=== PATIENT | female | born 1950 | race Caucasian/White ===

== ENCOUNTER 2016-11-03 00:52 | Emergency (ER) | payer MEDICARE, BC ==
[2016-11-03 01:13] VITALS: BP 135/82
[2016-11-03] MEDS ORDERED: Meclizine 25 MG Tab PO ONE (01:36)
--- NOTE | 2016-11-03 01:41 | EDM.PDOC ---
ED HPI GENERAL MEDICAL PROBLEM - General Chief Complaint: General Stated Complaint: DIZZINESS Time Seen by Provider: 11/03/16 01:27 Source of Information: Reports: Patient History Limitations: Reports: No Limitations - History of Present Illness INITIAL COMMENTS - FREE TEXT/NARRATIVE: History of present illness: [65-year-old female presenting with vertiginous dizziness came on tonight when she laid down. She noted then when she sat up in bed she also was dizzy. She's had a little nausea with this but no vomiting. She recalls having this once before in her life. She has no headache or visual disturbances she denies any focal neurologic deficits or weakness. A friend brought her in. She denies any ear pain or hearing loss but states she has some trouble with tinnitus at times. ] Review of systems: As per history of present illness and below otherwise all systems reviewed and negative. Past medical history: As per history of present illness and as reviewed below otherwise noncontributory. Surgical history: As per history of present illness and as reviewed below otherwise noncontributory. Social history: No reported history of drug or alcohol abuse. Family history: As per history of present illness and as reviewed below otherwise noncontributory. Physical exam: HEENT: Atraumatic, normocephalic, pupils reactive, negative for conjunctival pallor or scleral icterus, mucous membranes moist, throat clear, neck supple, nontender, trachea midline. TMs are clear, she displays no vertical or horizontal nystagmus but does complaint of vertiginous symptoms when we move her head from side to side. Lungs: Clear to auscultation, breath sounds equal bilaterally, chest nontender. Heart: S1S2, regular, negative for clicks, rubs, or JVD. Abdomen: Soft, nondistended, nontender. Negative for masses or hepatosplenomegaly. Negative for costovertebral tenderness. Pelvis: Stable nontender. Genitourinary: Deferred. Rectal: Deferred. Extremities: Atraumatic, negative for cords or calf pain. Neurovascular unremarkable. Neuro: Awake, alert, oriented. Cranial nerves II through XII unremarkable. Cerebellum unremarkable. Motor and sensory unremarkable throughout. Exam nonfocal. Diagnostics: [] Therapeutics: [] Impression: [Benign positional vertigo] Plan: [I gave her a dose of Antivert 25 mg and then a prescription for 20 more 1 by mouth every 6 hours she can follow-up with her primary care doctor if not improving the next few days] Definitive disposition and diagnosis as appropriate pending reevaluation and review of above. denies pain Pain Score (Numeric/FACES): 0 - Related Data Allergies Allergy/AdvReac Type Severity Reaction Status Date / Time No Known Allergies Allergy Verified 02/12/16 20:50 Home Meds: Home Meds Alendronate [Fosamax] 70 mg PO Q7D@0600 01/22/13 [History] Hydrochlorothiazide 12.5 mg PO DAILY 01/22/13 [History] Propranolol [Inderal] 40 mg PO TID 01/22/13 [History] ZOLMitriptan [Zomig] 5 mg PO ASDIRECTED PRN 01/22/13 [History] Calcium Carbonate/Vitamin D3 [Calcium 600 + Vit D Tablet] 1 each PO BID [History] Cyanocobalamin (Vitamin B-12) [Vitamin B-12] 1,000 mcg PO DAILY 05/11/13 [ History] Pedi Multivit #22/Vit D3/Vit K [Multivitamins Chewables Tablet] 1 tab PO DAILY 05/04/15 [History] Past Medical History HEENT History: Reports: Impaired Vision Cardiovascular History: Reports: Hypertension Gastrointestinal History: Reports: Other (See Below) STE[employer] History: Reports: Other (See Below) Other OB/BYN History: pain Musculoskeletal History: Reports: Osteoarthritis, Osteoporosis Neurological History: Reports: Headaches, Chronic Endocrine/Metabolic History: Reports: Obesity/BMI 30+ Hematologic History: Reports: B12 Deficiency, Blood Transfusion(s) Dermatologic History: Reports: Cellulitis, Other (See Below) Other Dermatologic History: ringworm - Infectious Disease History Infectious Disease History: Reports: Chicken Pox, Measles, Mumps - Past Surgical History GI Surgical History: Reports: Bariatric Procedure, Cholecystectomy, Colonoscopy Female Surgical History: Reports: Hysterectomy Musculoskeletal Surgical History: Reports: Hip Replacement, Knee Replacement Social & Family History - Tobacco Use Smoking Status *Q: Never Smoker Second Hand Smoke Exposure: No - Caffeine Use Caffeine Use: Reports: Coffee - Alcohol Use Days Per Week of Alcohol Use: 0 - Recreational Drug Use Recreational Drug Use: No - Living Situation & Occupation Living situation: Reports: Single Occupation: Retired ED ROS GENERAL - Review of Systems Review Of Systems: ROS reveals no pertinent complaints other than HPI. ED EXAM, GENERAL - Physical Exam Exam: See Below Course - Vital Signs Last Recorded V/S: Last Vital Signs Temp 35.8 C 11/03/16 01:12 Pulse 76 11/03/16 01:12 Resp 16 11/03/16 01:12 BP 135/82 11/03/16 01:12 Pulse Ox 95 11/03/16 01:12 - Orders/Labs/Meds Meds: Medications Discontinued Medications Generic Name Dose Route Start Last Admin Trade Name Aman PRN Reason Stop Dose Admin Meclizine HCl 25 mg 11/03/16 01:36 Antivert PO 11/03/16 01:37 ONETIME ONE Departure - Departure Time of Disposition: 01:40 Disposition: Home, Self-Care 01 Condition: Good Clinical Impression: Benign positional vertigo Qualifiers: Laterality: unspecified laterality Qualified Code(s): H81.10 - Benign paroxysmal vertigo, unspecified ear - Discharge Information Forms: ED Department Discharge Additional Instructions: Please follow-up with her doctor in the next 3-4 days if you're not improving. If he develop weakness of your face or arm or legs please return to the emergency room immediately.`
== END 2016-11-03 02:00 | disposition home or self-care (01) ==
LOC: JP.ED 00:52
DX: H81.10 Benign paroxysmal vertigo, unspecified ear (principal); I10 Essential (primary) hypertension; H54.7 Unspecified visual loss; M81.0 Age-related osteoporosis without current pathological fracture; E66.9 Obesity, unspecified; Z90.49 Acquired absence of other specified parts of digestive tract; Z90.710 Acquired absence of both cervix and uterus; Z96.649 Presence of unspecified artificial hip joint; Z96.659 Presence of unspecified artificial knee joint; Z79.899 Other long term (current) drug therapy
CPT/HCPCS: 99284; A9270; 99283

== ENCOUNTER 2018-02-03 06:21 | Day surgery (SDC) | payer MEDICARE, BC ==
[2018-02-03] MEDS ORDERED: Dextrose 5%-Lactated Ringers 1,000 ML IV SCH (07:15)
[2018-02-03] MEDS ORDERED: Midazolam 1 MG/ML 2 ML SDV ONE (08:01)
[2018-02-03] MEDS ORDERED: Propofol 200 MG/20 ML SDV ONE (08:01)
[2018-02-03] MEDS ORDERED: fentaNYL 100 MCG/2 ML SDV ONE (08:01)
[2018-02-03 10:10] VITALS: BP 107/71
--- NOTE | 2018-02-04 11:52 | OR ---
DATE OF PROCEDURE: 02/03/2018 PREOPERATIVE DIAGNOSIS: Indications for screening colonoscopy. POSTOPERATIVE DIAGNOSIS: Normal examination, other than multiple small hemangiomas in left colon. OPERATIVE PROCEDURE: Flexible colonoscopy. INDICATION FOR PROCEDURE: This is a 67-year-old referred for screening colonoscopy. The plan is to proceed with a colonoscopy with biopsies or polypectomy as indicated. Potential risks including bleeding and perforation were discussed, and the patient wishes to proceed. DETAILS OF PROCEDURE: The patient was taken to the operating room and after being placed in the left lateral decubitus position, IV sedation was administered. The initial digital rectal exam was performed and was unremarkable. Colonoscope was passed into the rectum with retroflexion revealing uncomplicated hemorrhoidal columns. The scope was then passed to the cecum. The prep was fairly good with there only being a small amount of liquid stool present. On the left side, the patient had multiple small hemangiomas in the sigmoid and descending colon, otherwise, the examination was normal. There were no areas of diverticulosis and, otherwise, no polyps or signs of neoplasia and no areas of colitis. The scope was then withdrawn, the above findings were reconfirmed, and the procedure concluded. Recommendation would be to repeat the colonoscopy in 10 years. Chip Rios MD /[id number]
== END 2018-02-03 10:10 | disposition home or self-care (01) ==
LOC: JP.SDS 06:21
PROVIDERS: ATTEND Surgery
DX: Z12.11 Encounter for screening for malignant neoplasm of colon (principal); D18.03 Hemangioma of intra-abdominal structures; I10 Essential (primary) hypertension; M17.10 Unilateral primary osteoarthritis, unspecified knee; E66.9 Obesity, unspecified; Z68.42 Body mass index [BMI] 45.0-49.9, adult; Z98.84 Bariatric surgery status; Z79.899 Other long term (current) drug therapy
CPT/HCPCS: G0121; J2250; J2704; J3010; J7042

== ENCOUNTER 2019-07-20 06:34 | Inpatient (IN) | payer MEDICARE, BC ==
[2019-07-20] MEDS ORDERED: Lactated Ringers 1,000 ML IV SCH (07:30)
[2019-07-20] MEDS ORDERED: ceFAZolin 2 GM in Premix Bag 1 BAG IV ONE (07:30)
[2019-07-20] MEDS: Nozin Nasal Sanitizer NASBOTH SCH ×2 (08:05→21:01)
[2019-07-20] MEDS ORDERED: Propofol 200 MG/20 ML SDV ONE ×2 (08:18→10:23)
[2019-07-20] MEDS ORDERED: fentaNYL 100 MCG/2 ML SDV ONE (08:18)
[2019-07-20] MEDS ORDERED: Midazolam 1 MG/ML 2 ML SDV ONE (08:18)
[2019-07-20] MEDS ORDERED: Povidone-Iodine 10% Soln 118.25 ML Bottle ONE (08:53)
[2019-07-20] MEDS ORDERED: Tranexamic Acid 960 MG in Sodium Chloride 0.9% 50 ML IV SCH (09:00)
[2019-07-20] MEDS ORDERED: Bupivacaine 0.25% 10 ML SDV ONE (09:22)
[2019-07-20] MEDS ORDERED: Lactated Ringers 1,000 ML ONE (10:25)
[2019-07-20] MEDS ORDERED: Acetaminophen 325 MG Tab PO PRN (11:48)
[2019-07-20] MEDS ORDERED: Morphine 2 MG/ML Syringe IVPUSH PRN (11:48)
[2019-07-20] MEDS ORDERED: Acetaminophen/HYDROcodone 325-5 MG Tab PO PRN (11:48)
[2019-07-20] MEDS ORDERED: SUMAtriptan 50 MG Tab PO PRN (11:55)
[2019-07-20] MEDS ORDERED: Tranexamic Acid 960 MG in Sodium Chloride 0.9% 50 ML IV PRN (12:00)
[2019-07-20] MEDS: Sodium Chloride 0.9% 1,000 ML IV SCH ×2 (12:52→20:58)
[2019-07-20] MEDS: Propranolol 40 MG Tab PO SCH ×2 (14:51→21:01)
[2019-07-20] MEDS: Acetaminophen/oxyCODONE 325-5 MG Tab PO PRN ×4 (15:19→23:51)
[2019-07-20] MEDS: ceFAZolin 1 GM in Premix Bag 1 BAG IV SCH ×2 (16:28→23:58)
[2019-07-20] MEDS: Ondansetron 4 MG/2 ML SDV IVPUSH PRN (18:33)
--- NOTE | 2019-07-20 20:17 | CRLCR ---
Indication: Postop left total knee. Technique: Two views of the left knee. Comparison: None Findings: Left knee replacement is identified. Air is identified within the soft tissues. There is no evidence of hardware failure. Impression: Postoperative changes of a left knee replacement Dictated by Karen Lan MD @ Jul 20 2019 8:14PM Signed by Dr. Karen Lan @ Jul 20 2019 8:15PM
[2019-07-20] MEDS: Docusate Sodium 100 MG Cap PO SCH (21:00)
[2019-07-21] MEDS: Acetaminophen/oxyCODONE 325-5 MG Tab PO PRN ×5 (04:45→22:27)
[2019-07-21] MEDS: Sodium Chloride 0.9% 1,000 ML IV SCH (05:27)
[2019-07-21] MEDS: ceFAZolin 1 GM in Premix Bag 1 BAG IV SCH (07:16)
[2019-07-21] MEDS: Magnesium Hydroxide 400 MG/5 ML Susp 30 ML Cup PO PRN (08:48)
[2019-07-21] MEDS: Propranolol 40 MG Tab PO SCH ×3 (08:50→22:27)
[2019-07-21] MEDS: Hydrochlorothiazide 12.5 MG Cap PO SCH (08:50)
[2019-07-21] MEDS: Docusate Sodium 100 MG Cap PO SCH ×2 (08:50→22:27)
[2019-07-21] MEDS: Enoxaparin 30 MG/0.3 ML Syringe SUBCUT SCH (08:50)
[2019-07-21] MEDS: Nozin Nasal Sanitizer NASBOTH SCH ×2 (08:50→22:28)
[2019-07-21] MEDS: Ondansetron 4 MG/2 ML SDV IVPUSH PRN (10:44)
[2019-07-22] MEDS: Acetaminophen/oxyCODONE 325-5 MG Tab PO PRN ×4 (03:04→18:34)
[2019-07-22] MEDS: Hydrochlorothiazide 12.5 MG Cap PO SCH (08:15)
[2019-07-22] MEDS: Nozin Nasal Sanitizer NASBOTH SCH ×2 (08:15→20:01)
[2019-07-22] MEDS: Docusate Sodium 100 MG Cap PO SCH ×2 (08:15→20:01)
[2019-07-22] MEDS: Enoxaparin 30 MG/0.3 ML Syringe SUBCUT SCH (08:16)
[2019-07-22] MEDS: Propranolol 40 MG Tab PO SCH ×3 (08:16→20:01)
[2019-07-22] MEDS: Magnesium Hydroxide 400 MG/5 ML Susp 30 ML Cup PO PRN ×2 (12:40→18:36)
--- NOTE | 2019-07-22 15:52 | PCM.SURGPN ---
- General Info Date of Service: 07/21/19 Date of Surgery/Procedure: 07/20/19 POD#: 1 Post-Op Diagnosis: Osteoarthritis left knee Functional Status: Reports: Pain Controlled, Tolerating Diet - Review of Systems General: Reports: No Symptoms HEENT: Reports: No Symptoms Pulmonary: Reports: No Symptoms Cardiovascular: Reports: No Symptoms Gastrointestinal: Reports: No Symptoms Genitourinary: Reports: No Symptoms Musculoskeletal: Reports: Leg Pain, Joint Swelling Skin: Reports: No Symptoms Neurological: Reports: No Symptoms Psychiatric: Reports: No Symptoms - Patient Data Vitals - Most Recent: Last Vital Signs Temp 37.6 C 07/22/19 14:55 Pulse 80 07/22/19 14:55 Resp 16 07/22/19 14:55 BP 118/43 L 07/22/19 14:55 Pulse Ox 93 L 07/22/19 14:55 Weight - Most Recent: 93.984 kg I&O - Last 24 Hours: Intake & Output 07/22/19 07/22/19 07/22/19 06:59 14:59 22:59 Intake Total 360 Output Total 900 700 100 Balance -900 -340 -100 Med Orders - Current: Current Medications Acetaminophen (Tylenol) 650 mg PO Q4H PRN PRN Reason: Pain/Fever Hydrocodone Bitart/Acetaminophen ([place] 325-5 Mg) 1 tab PO Q3H PRN PRN Reason: Pain (mild 1-3) Bandage/Support Products ( Nasal Marketing Project Coordinator) 1 applic NASBOTH BID [facility] Last Admin: 07/22/19 08:15 Dose: 1 applic Docusate Sodium (Colace) 100 mg PO BID [facility] Last Admin: 07/22/19 08:15 Dose: 100 mg Enoxaparin Sodium (Lovenox) 30 mg SUBCUT DAILY [facility] Last Admin: 07/22/19 08:16 Dose: 30 mg Hydrochlorothiazide (Hydrochlorothiazide) 12.5 mg PO DAILY [facility] Last Admin: 07/22/19 08:15 Dose: 12.5 mg Magnesium Hydroxide (Milk Of Magnesia) 30 ml PO BID PRN PRN Reason: Constipation Last Admin: 07/22/19 12:40 Dose: 30 ml Morphine Sulfate (Morphine) 2 mg IVPUSH Q1H PRN PRN Reason: Breakthrough Pain Last Admin: 07/20/19 13:56 Dose: 2 mg Ondansetron HCl (Zofran) 4 mg IVPUSH Q6H PRN PRN Reason: Nausea/Vomiting Last Admin: 07/21/19 10:44 Dose: 4 mg Oxycodone/Acetaminophen (Percocet 325-5 Mg) 1 - 2 tab PO Q4H PRN PRN Reason: Pain (moderate 4-6) Last Admin: 07/22/19 12:40 Dose: 2 tab Propranolol HCl (Inderal) 40 mg PO TID [facility] Last Admin: 07/22/19 14:56 Dose: 40 mg Sumatriptan Succinate (Imitrex) 50 mg PO ASDIRECTED PRN PRN Reason: Migraine Discontinued Medications Bupivacaine HCl (Sensorcaine-Mpf 0.25%) Confirm Administered Dose 10 ml .ROUTE .STK-MED ONE Stop: 07/20/19 09:23 Fentanyl (Sublimaze) Confirm Administered Dose 100 mcg .ROUTE .STK-MED ONE Stop: 07/20/19 08:19 Cefazolin Sodium/Dextrose 2 gm (/ Premix) 50 mls @ 100 mls/hr IV ONETIME ONE Stop: 07/20/19 07:59 Last Admin: 07/20/19 09:25 Dose: 100 mls/hr Lactated Ringer's (Ringers, Lactated) 1,000 mls @ 75 mls/hr IV ASDIRECTED [facility] Last Admin: 07/20/19 08:06 Dose: 75 mls/hr Tranexamic Acid 960 mg/ Sodium (Chloride) 59.6 mls @ 238.4 mls/hr IV Q3H [facility] Stop: 07/20/19 09:14 Last Admin: 07/20/19 09:50 Dose: 238.4 mls/hr Tranexamic Acid 960 mg/ Sodium (Chloride) 59.6 mls @ 238.4 mls/hr IV ONETIME PRN PRN Reason: IF REORDERED BY SURGEON Stop: 07/20/19 12:01 Lactated Ringer's (Ringers, Lactated) Confirm Administered Dose 1,000 mls @ as directed .ROUTE .STK-MED ONE Stop: 07/20/19 10:26 Cefazolin Sodium/Dextrose 1 gm (/ Premix) 50 mls @ 100 mls/hr IV Q8H [facility] Stop: 07/21/19 08:29 Last Admin: 07/21/19 07:16 Dose: 100 mls/hr Sodium Chloride (Normal Saline) 1,000 mls @ 125 mls/hr IV ASDIRECTED [facility] Last Admin: 07/21/19 05:27 Dose: 125 mls/hr Midazolam HCl (Versed 1 Mg/Ml) Confirm Administered Dose 2 mg .ROUTE .STK-MED ONE Stop: 07/20/19 08:19 Povidone Iodine (Betadine 10% Soln) Confirm Administered Dose 1 ml .ROUTE .STK- MED ONE Stop: 07/20/19 08:54 Last Admin: 07/20/19 11:25 Dose: 1 ml Propofol (Diprivan 20 Ml) Confirm Administered Dose 200 mg .ROUTE .STK-MED ONE Stop: 07/20/19 08:19 Propofol (Diprivan 20 Ml) Confirm Administered Dose 200 mg .ROUTE .STK-MED ONE Stop: 07/20/19 10:24 - Exam Wound/Incisions: Dressing Dry and Intact General: Alert, Oriented HEENT: Pupils Equal Neck: Supple Cardiovascular: Regular Rate, Regular Rhythm GI/Abdominal Exam: Normal Bowel Sounds, Soft, No Organomegaly Extremities: Leg Pain, Limited Range of Motion Skin: Warm, Dry Neurological: No New Focal Deficit Psy/Mental Status: Alert, Normal Affect, Normal Mood Sepsis Event Note - Evaluation Sepsis Screening Result: No Definite Risk - Focused Exam Vital Signs: Vital Signs Temp Pulse Resp BP BP Pulse Ox 07/22/19 14:55 37.6 C 80 16 118/43 L 93 L 07/22/19 10:08 37.8 C 79 16 109/53 L 92 L 07/22/19 07:03 37.2 C 83 16 128/58 L 93 L Date Exam was Performed: 07/22/19 Time Exam was Performed: 15:49 - Problem List & Annotations (1) Status post total left knee replacement SNOMED Code(s): 9981530747267, 1620123268681 Code(s): Z96.652 - PRESENCE OF LEFT ARTIFICIAL KNEE JOINT Status: Acute Current Visit: Yes (2) Osteoarthritis, knee SNOMED Code(s): 367352431 Code(s): M17.10 - UNILATERAL PRIMARY OSTEOARTHRITIS, UNSPECIFIED KNEE Status: Acute Current Visit: No Qualifiers: Osteoarthritis type: primary Laterality: left Qualified Code(s): M17.12 - Unilateral primary osteoarthritis, left knee - Problem List Review Problem List Initiated/Reviewed/Updated: Yes - My Orders Last 24 Hours: Medication Orders Acetaminophen (Tylenol) 650 mg PO Q4H PRN PRN Reason: Pain/Fever Hydrocodone Bitart/Acetaminophen ([place] 325-5 Mg) 1 tab PO Q3H PRN PRN Reason: Pain (mild 1-3) Bandage/Support Products ( Nasal Marketing Project Coordinator) 1 applic NASBOTH BID [facility] Last Admin: 07/22/19 08:15 Dose: 1 applic Admin: 07/21/19 22:28 Dose: 1 applic Admin: 07/21/19 08:50 Dose: 1 applic Admin: 07/20/19 21:01 Dose: 1 applic Admin: 07/20/19 08:05 Dose: 1 applic Docusate Sodium (Colace) 100 mg PO BID [facility] Last Admin: 07/22/19 08:15 Dose: 100 mg Admin: 07/21/19 22:27 Dose: 100 mg Admin: 07/21/19 08:50 Dose: 100 mg Admin: 07/20/19 21:00 Dose: 100 mg Enoxaparin Sodium (Lovenox) 30 mg SUBCUT DAILY [facility] Last Admin: 07/22/19 08:16 Dose: 30 mg Admin: 07/21/19 08:50 Dose: 30 mg Hydrochlorothiazide (Hydrochlorothiazide) 12.5 mg PO DAILY [facility] Last Admin: 07/22/19 08:15 Dose: 12.5 mg Admin: 07/21/19 08:50 Dose: 12.5 mg Magnesium Hydroxide (Milk Of Magnesia) 30 ml PO BID PRN PRN Reason: Constipation Last Admin: 07/22/19 12:40 Dose: 30 ml Admin: 07/21/19 08:48 Dose: 30 ml Morphine Sulfate (Morphine) 2 mg IVPUSH Q1H PRN PRN Reason: Breakthrough Pain Last Admin: 07/20/19 13:56 Dose: 2 mg Ondansetron HCl (Zofran) 4 mg IVPUSH Q6H PRN PRN Reason: Nausea/Vomiting Last Admin: 07/21/19 10:44 Dose: 4 mg Admin: 07/20/19 18:33 Dose: 4 mg Oxycodone/Acetaminophen (Percocet 325-5 Mg) 1 - 2 tab PO Q4H PRN PRN Reason: Pain (moderate 4-6) Last Admin: 07/22/19 12:40 Dose: 2 tab Admin: 07/22/19 08:14 Dose: 2 tab Admin: 07/22/19 03:04 Dose: 1 tab Admin: 07/21/19 22:27 Dose: 2 tab Admin: 07/21/19 18:14 Dose: 2 tab Admin: 07/21/19 13:22 Dose: 2 tab Admin: 07/21/19 08:49 Dose: 2 tab Admin: 07/21/19 04:45 Dose: 2 tab Admin: 07/20/19 23:51 Dose: 2 tab Admin: 07/20/19 19:36 Dose: 1 tab Admin: 07/20/19 19:26 Dose: 1 tab Admin: 07/20/19 15:19 Dose: 1 tab Propranolol HCl (Inderal) 40 mg PO TID [facility] Last Admin: 07/22/19 14:56 Dose: 40 mg Admin: 07/22/19 08:16 Dose: 40 mg Admin: 07/21/19 22:27 Dose: 40 mg Admin: 07/21/19 13:22 Dose: 40 mg Admin: 07/21/19 08:50 Dose: 40 mg Admin: 07/20/19 21:01 Dose: 40 mg Admin: 07/20/19 14:51 Dose: 40 mg Sumatriptan Succinate (Imitrex) 50 mg PO ASDIRECTED PRN PRN Reason: Migraine - Assessment Assessment (Free Text/Narrative):: Did well over night, no nausea, up in chair for a little bit, not much walking - Plan Plan (Free Text/Narrative):: Continue PT, D/C Cárdenas, tolerating po so will saline lock IV
--- NOTE | 2019-07-22 15:55 | PCM.SURGPN ---
- General Info Date of Service: 07/22/19 Date of Surgery/Procedure: 07/20/19 POD#: 2 Post-Op Diagnosis: Osteoarthritis left knee Functional Status: Reports: Pain Controlled, Tolerating Diet, Ambulating, Urinating - Review of Systems General: Reports: No Symptoms HEENT: Reports: No Symptoms Pulmonary: Reports: No Symptoms Cardiovascular: Reports: No Symptoms Gastrointestinal: Reports: No Symptoms Genitourinary: Reports: No Symptoms Musculoskeletal: Reports: Joint Pain, Joint Swelling Skin: Reports: No Symptoms Neurological: Reports: No Symptoms Psychiatric: Reports: No Symptoms - Patient Data Vitals - Most Recent: Last Vital Signs Temp 37.6 C 07/22/19 14:55 Pulse 80 07/22/19 14:55 Resp 16 07/22/19 14:55 BP 118/43 L 07/22/19 14:55 Pulse Ox 93 L 07/22/19 14:55 Weight - Most Recent: 93.984 kg I&O - Last 24 Hours: Intake & Output 07/22/19 07/22/19 07/22/19 06:59 14:59 22:59 Intake Total 360 Output Total 900 700 100 Balance -900 -340 -100 Med Orders - Current: Current Medications Acetaminophen (Tylenol) 650 mg PO Q4H PRN PRN Reason: Pain/Fever Hydrocodone Bitart/Acetaminophen ([place] 325-5 Mg) 1 tab PO Q3H PRN PRN Reason: Pain (mild 1-3) Bandage/Support Products ( Nasal Portfolio Specialist) 1 applic NASBOTH BID [facility] Last Admin: 07/22/19 08:15 Dose: 1 applic Docusate Sodium (Colace) 100 mg PO BID [facility] Last Admin: 07/22/19 08:15 Dose: 100 mg Enoxaparin Sodium (Lovenox) 30 mg SUBCUT DAILY [facility] Last Admin: 07/22/19 08:16 Dose: 30 mg Hydrochlorothiazide (Hydrochlorothiazide) 12.5 mg PO DAILY [facility] Last Admin: 07/22/19 08:15 Dose: 12.5 mg Magnesium Hydroxide (Milk Of Magnesia) 30 ml PO BID PRN PRN Reason: Constipation Last Admin: 07/22/19 12:40 Dose: 30 ml Morphine Sulfate (Morphine) 2 mg IVPUSH Q1H PRN PRN Reason: Breakthrough Pain Last Admin: 07/20/19 13:56 Dose: 2 mg Ondansetron HCl (Zofran) 4 mg IVPUSH Q6H PRN PRN Reason: Nausea/Vomiting Last Admin: 07/21/19 10:44 Dose: 4 mg Oxycodone/Acetaminophen (Percocet 325-5 Mg) 1 - 2 tab PO Q4H PRN PRN Reason: Pain (moderate 4-6) Last Admin: 07/22/19 12:40 Dose: 2 tab Propranolol HCl (Inderal) 40 mg PO TID [facility] Last Admin: 07/22/19 14:56 Dose: 40 mg Sumatriptan Succinate (Imitrex) 50 mg PO ASDIRECTED PRN PRN Reason: Migraine Discontinued Medications Bupivacaine HCl (Sensorcaine-Mpf 0.25%) Confirm Administered Dose 10 ml .ROUTE .STK-MED ONE Stop: 07/20/19 09:23 Fentanyl (Sublimaze) Confirm Administered Dose 100 mcg .ROUTE .STK-MED ONE Stop: 07/20/19 08:19 Cefazolin Sodium/Dextrose 2 gm (/ Premix) 50 mls @ 100 mls/hr IV ONETIME ONE Stop: 07/20/19 07:59 Last Admin: 07/20/19 09:25 Dose: 100 mls/hr Lactated Ringer's (Ringers, Lactated) 1,000 mls @ 75 mls/hr IV ASDIRECTED [facility] Last Admin: 07/20/19 08:06 Dose: 75 mls/hr Tranexamic Acid 960 mg/ Sodium (Chloride) 59.6 mls @ 238.4 mls/hr IV Q3H [facility] Stop: 07/20/19 09:14 Last Admin: 07/20/19 09:50 Dose: 238.4 mls/hr Tranexamic Acid 960 mg/ Sodium (Chloride) 59.6 mls @ 238.4 mls/hr IV ONETIME PRN PRN Reason: IF REORDERED BY SURGEON Stop: 07/20/19 12:01 Lactated Ringer's (Ringers, Lactated) Confirm Administered Dose 1,000 mls @ as directed .ROUTE .STK-MED ONE Stop: 07/20/19 10:26 Cefazolin Sodium/Dextrose 1 gm (/ Premix) 50 mls @ 100 mls/hr IV Q8H [facility] Stop: 03/03/20 08:29 Last Admin: 07/21/19 07:16 Dose: 100 mls/hr Sodium Chloride (Normal Saline) 1,000 mls @ 125 mls/hr IV ASDIRECTED [facility] Last Admin: 07/21/19 05:27 Dose: 125 mls/hr Midazolam HCl (Versed 1 Mg/Ml) Confirm Administered Dose 2 mg .ROUTE .STK-MED ONE Stop: 07/20/19 08:19 Povidone Iodine (Betadine 10% Soln) Confirm Administered Dose 1 ml .ROUTE .STK- MED ONE Stop: 07/20/19 08:54 Last Admin: 07/20/19 11:25 Dose: 1 ml Propofol (Diprivan 20 Ml) Confirm Administered Dose 200 mg .ROUTE .STK-MED ONE Stop: 07/20/19 08:19 Propofol (Diprivan 20 Ml) Confirm Administered Dose 200 mg .ROUTE .STK-MED ONE Stop: 07/20/19 10:24 - Exam Wound/Incisions: Healing Well, Dressing Dry and Intact, No Drainage General: Alert, Oriented HEENT: Pupils Equal Neck: Supple Lungs: Clear to Auscultation, Normal Respiratory Effort GI/Abdominal Exam: Normal Bowel Sounds, Soft, Non-Tender, No Distention Extremities: Leg Pain, Limited Range of Motion Skin: Warm, Dry Neurological: No New Focal Deficit Psy/Mental Status: Alert, Normal Affect, Normal Mood Sepsis Event Note - Evaluation Sepsis Screening Result: No Definite Risk - Focused Exam Vital Signs: Vital Signs Temp Pulse Resp BP BP Pulse Ox 07/22/19 14:55 37.6 C 80 16 118/43 L 93 L 07/22/19 10:08 37.8 C 79 16 109/53 L 92 L 07/22/19 07:03 37.2 C 83 16 128/58 L 93 L Date Exam was Performed: 07/22/19 Time Exam was Performed: 15:52 - Problem List & Annotations (1) Status post total left knee replacement SNOMED Code(s): 2137379104994, 7190141607410 Code(s): Z96.652 - PRESENCE OF LEFT ARTIFICIAL KNEE JOINT Status: Acute Current Visit: Yes (2) Osteoarthritis, knee SNOMED Code(s): 775242228 Code(s): M17.10 - UNILATERAL PRIMARY OSTEOARTHRITIS, UNSPECIFIED KNEE Status: Acute Current Visit: No Qualifiers: Osteoarthritis type: primary Laterality: left Qualified Code(s): M17.12 - Unilateral primary osteoarthritis, left knee - Problem List Review Problem List Initiated/Reviewed/Updated: Yes - My Orders Last 24 Hours: Medication Orders Acetaminophen (Tylenol) 650 mg PO Q4H PRN PRN Reason: Pain/Fever Hydrocodone Bitart/Acetaminophen ([place] 325-5 Mg) 1 tab PO Q3H PRN PRN Reason: Pain (mild 1-3) Bandage/Support Products ( Nasal Portfolio Specialist) 1 applic NASBOTH BID [facility] Last Admin: 07/22/19 08:15 Dose: 1 applic Admin: 07/21/19 22:28 Dose: 1 applic Admin: 07/21/19 08:50 Dose: 1 applic Admin: 07/20/19 21:01 Dose: 1 applic Admin: 07/20/19 08:05 Dose: 1 applic Docusate Sodium (Colace) 100 mg PO BID [facility] Last Admin: 07/22/19 08:15 Dose: 100 mg Admin: 07/21/19 22:27 Dose: 100 mg Admin: 07/21/19 08:50 Dose: 100 mg Admin: 07/20/19 21:00 Dose: 100 mg Enoxaparin Sodium (Lovenox) 30 mg SUBCUT DAILY [facility] Last Admin: 07/22/19 08:16 Dose: 30 mg Admin: 07/21/19 08:50 Dose: 30 mg Hydrochlorothiazide (Hydrochlorothiazide) 12.5 mg PO DAILY [facility] Last Admin: 07/22/19 08:15 Dose: 12.5 mg Admin: 07/21/19 08:50 Dose: 12.5 mg Magnesium Hydroxide (Milk Of Magnesia) 30 ml PO BID PRN PRN Reason: Constipation Last Admin: 07/22/19 12:40 Dose: 30 ml Admin: 07/21/19 08:48 Dose: 30 ml Morphine Sulfate (Morphine) 2 mg IVPUSH Q1H PRN PRN Reason: Breakthrough Pain Last Admin: 07/20/19 13:56 Dose: 2 mg Ondansetron HCl (Zofran) 4 mg IVPUSH Q6H PRN PRN Reason: Nausea/Vomiting Last Admin: 07/21/19 10:44 Dose: 4 mg Admin: 07/20/19 18:33 Dose: 4 mg Oxycodone/Acetaminophen (Percocet 325-5 Mg) 1 - 2 tab PO Q4H PRN PRN Reason: Pain (moderate 4-6) Last Admin: 07/22/19 12:40 Dose: 2 tab Admin: 07/22/19 08:14 Dose: 2 tab Admin: 07/22/19 03:04 Dose: 1 tab Admin: 07/21/19 22:27 Dose: 2 tab Admin: 07/21/19 18:14 Dose: 2 tab Admin: 07/21/19 13:22 Dose: 2 tab Admin: 07/21/19 08:49 Dose: 2 tab Admin: 07/21/19 04:45 Dose: 2 tab Admin: 07/20/19 23:51 Dose: 2 tab Admin: 07/20/19 19:36 Dose: 1 tab Admin: 07/20/19 19:26 Dose: 1 tab Admin: 07/20/19 15:19 Dose: 1 tab Propranolol HCl (Inderal) 40 mg PO TID [facility] Last Admin: 07/22/19 14:56 Dose: 40 mg Admin: 07/22/19 08:16 Dose: 40 mg Admin: 07/21/19 22:27 Dose: 40 mg Admin: 07/21/19 13:22 Dose: 40 mg Admin: 07/21/19 08:50 Dose: 40 mg Admin: 07/20/19 21:01 Dose: 40 mg Admin: 07/20/19 14:51 Dose: 40 mg Sumatriptan Succinate (Imitrex) 50 mg PO ASDIRECTED PRN PRN Reason: Migraine - Assessment Assessment (Free Text/Narrative):: Doing a little better with mobility today, has been able to get into hallway, dressing removed, incision looks good - Plan Plan (Free Text/Narrative):: Continue PT/OT, she lives alone so arrangements being made for SNF
--- NOTE | 2019-07-22 20:26 | OR ---
DATE OF PROCEDURE: 07/20/2019 SURGEON: Diogo Plascencia MD PREOPERATIVE DIAGNOSIS: End-stage osteoarthritis, left knee. POSTOPERATIVE DIAGNOSIS: End-stage osteoarthritis, left knee. PROCEDURE: Left total knee arthroplasty utilizing [employer] components. ANESTHESIA: Spinal with sedation. INDICATIONS: Angelique is a 68-year-old female with a history of progressive pain and disability in her left knee for the past several years. She has a history of right total knee arthroplasty done in 2012. She has done well with that, but has become progressively more limited with her left knee. X-rays show end-stage osteoarthritis with complete collapse medially, osteophyte formation and flattening of weightbearing surfaces. Range of motion is limited from 0 to 90 degrees. She now presents for her left total knee arthroplasty. Risks, benefits, potential complications of the procedure were discussed, she agrees to proceed. DESCRIPTION OF PROCEDURE: After adequate anesthesia was obtained, the patient was placed supine with a tourniquet about the left upper thigh. Left leg was prepped and draped in a sterile fashion. Leg was exsanguinated and tourniquet inflated to 300 mmHg pressure. Longitudinal incision was made over the anterior aspect of the knee and carried down through the subcutaneous tissues. Medial parapatellar arthrotomy was performed. The patella was partially everted and the posterior aspect was resected with an oscillating saw. Significant medial osteophyte present around the tibial plateau. A medial release was performed and rongeur used to remove the osteophyte. The knee was flexed, and as the knee was flexed, a large intra-articular loose body presented itself and was removed. Intramedullary canal was drilled and intramedullary guide was placed. Distal cutting jig was secured and the distal femoral cuts were then made. Extramedullary tibial jig was then placed, aligned and secured. Proximal tibia was resected. Knee was flexed and the femur was sized. A #6 cutting jig was secured and remaining femoral cuts were made. Femoral trial was then placed and intramedullary notch cut was made for a posterior cruciate sacrificing component and holes were drilled for the prosthetic pegs. It became apparent that the flexion-extension gap was still inadequate, and an additional 4 mm was resected from the tibia. Medial release was also extended more posteriorly. Tibia was sized and size 10 trial was placed and the knee was taken through range of motion. Full extension was able to be obtained and the flexion-extension gaps appeared to be equal. Tibial tray was secured. The trial articular surface and femur were removed and tibial preparation completed with the drill and punch. The tray was removed. The knee was then thoroughly irrigated with pulse lavage. The bone surfaces were dried and components were cemented in place. Excess cement was removed. Knee was held in full extension with a 10 mm insert as cement cured. This showed tightness medially and slight laxity laterally. An 11 blade was then used to perform a fractional release of the medial collateral ligament in pie crust fashion. A 12 mm insert was then trialed, which provided good balance in flexion and extension. Trial was removed, knee was irrigated, and the final polyethylene was snapped into position. Patella tracked very well with no lateral release. Knee was irrigated with a dilute Betadine solution which was left in place for 2.5 minutes followed by final irrigation and then closure with #2 Ethibond in interrupted fashion. Knee was ranged after closure in full extension and now flexion to 125 degrees was obtained without difficulty. Knee was then closed the remainder of the way with 2-0 Vicryl and 3-0 Monocryl and Steri- Strips were applied. Light compressive dressing was then placed. The patient tolerated the procedure very well. There were no complications. Taken from the operating room in stable condition. Diogo Plascencia MD /[id number] KIM
[2019-07-23] MEDS: Acetaminophen/oxyCODONE 325-5 MG Tab PO PRN ×3 (00:55→13:01)
[2019-07-23] MEDS: Nozin Nasal Sanitizer NASBOTH SCH (08:15)
[2019-07-23] MEDS: Enoxaparin 30 MG/0.3 ML Syringe SUBCUT SCH (08:17)
[2019-07-23] MEDS: Propranolol 40 MG Tab PO SCH (08:17)
[2019-07-23] MEDS: Docusate Sodium 100 MG Cap PO SCH (08:17)
[2019-07-23] MEDS: Hydrochlorothiazide 12.5 MG Cap PO SCH (08:17)
[2019-07-23 10:12] VITALS: BP 110/66; PULSE 73
--- NOTE | 2019-07-23 15:04 | PCM.DCSUM1 ---
Discharge Summary - Hospital Course HPI Initial Comments: 68 year old female with severe left knee OA limiting her walking and ADLS. Admitted for left TKA. Diagnosis: Stroke: No Modified Bonneville Scale: No Symptoms at All Modified Bonneville Scale Score: 0 - Discharge Data Discharge Date: 07/23/19 Discharge Disposition: DC/Tfer to SNF 03 Condition: Good - Referral to Home Health Date of Face to Face Encounter: 07/23/19 Primary Care Physician: Angel Joseph MD - Discharge Diagnosis/Problem(s) (1) Status post total left knee replacement SNOMED Code(s): 7818209194251, 1812475095154 ICD Code: Z96.652 - PRESENCE OF LEFT ARTIFICIAL KNEE JOINT Status: Acute (2) Osteoarthritis, knee SNOMED Code(s): 049472870 ICD Code: M17.10 - UNILATERAL PRIMARY OSTEOARTHRITIS, UNSPECIFIED KNEE Status: Acute Qualifiers: Osteoarthritis type: primary Laterality: left Qualified Code(s): M17.12 - Unilateral primary osteoarthritis, left knee - Patient Summary/Data Operative Procedure(s) Performed: Left Total Knee Arthroplasty Consults: Consultations 07/20/19 11:48 Consult to Case Management/Aging Room Operator [CONS] Routine Comment: Physician Instructions: Service(s) to be Consulted: Case Management Reason for Consult: Plan for Discharge PT Evaluation and Treatment [CONS] Routine Please Evaluate and Treat. PT Reason for Consult: Post op Ortho Surgery This query below is only for informational purposes and is not editable. PT Evaluation and Treatment [CONS] Routine Please Evaluate and Treat. PT Reason for Consult: Post op Ortho Surgery Knee Pending Discharge: Yes, 1- 2 days Special Instructions: Schedule first outpatient PT appointment in 3-5 day post discharge. This query below is only for informational purposes and is not editable. Hospital Course: Tolerated surgery without complication, pain fairly well controlled, limited mobility especially the first two days, progressed with PT but still having difficulty with transfers out of bed, dressing changed POD #2, no wound complications, voiding and BM prior to discharge. Continue PT/OT. Recommend anticoagulation for 28 days post op. Follow up in 2 weeks or earlier if needed. - Patient Instructions Diet: Usual Diet as Tolerated Activity: Apply Ice, As Tolerated, Full Weight Bearing Driving: Do Not Drive Showering/Bathing: May Shower Wound/Incision Care: Keep Operative Site/Wound Site Clean and Dry Notify Provider of: Fever, Increased Pain, Swelling and Redness, Drainage - Discharge Plan *PRESCRIPTION DRUG MONITORING PROGRAM REVIEWED*: No *COPY OF PRESCRIPTION DRUG MONITORING REPORT IN PATIENT RONY: No Prescriptions/Med Rec: oxyCODONE HCl/Acetaminophen [Percocet 5-325 mg Tablet] 2 each PO Q6HR PRN #50 tablet PRN Reason: Pain Enoxaparin Sodium [Lovenox] 40 mg SQ DAILY 28 Days #28 syringe Home Medications: Home Meds Propranolol [Inderal] 40 mg PO TID 01/22/13 [History] hydroCHLOROthiazide [Hydrochlorothiazide] 12.5 mg PO DAILY 01/22/13 [History] Calcium Carbonate/Vitamin D3 [Calcium 600 + Vit D Tablet] 1 each PO BID [History] Cyanocobalamin (Vitamin B-12) [Vitamin B-12] 1,000 mcg PO DAILY 05/11/13 [ History] Pedi Multivit #22/Vit D3/Vit K [Multivitamins Chewables Tablet] 1 tab PO DAILY 05/04/15 [History] Clotrimazole [Lotrimin AF 1% Crm] 1 dose TOP BID PRN 01/30/18 [History] SUMAtriptan Succinate [Imitrex] 50 mg PO ASDIRECTED PRN 01/30/18 [History] Triamcinolone Acetonide [Triamcinolone Acetonide 0.1% Crm] 1 dose TOP BID PRN [History] Acetaminophen [Tylenol] 650 mg PO BID PRN 07/20/19 [History] Ibuprofen 600 mg PO TID PRN 07/20/19 [History] Enoxaparin Sodium [Lovenox] 40 mg SQ DAILY 28 Days #28 syringe 07/23/19 [Rx] oxyCODONE HCl/Acetaminophen [Percocet 5-325 mg Tablet] 2 each PO Q6HR PRN #50 tablet 07/23/19 [Rx] Oxygen Therapy Mode: Room Air Referrals: Diogo Plascencia MD [Physician] - 08/04/19 1:45 pm (Please arrive 15 minutes early and register at the ER desk of the hospital.) - Discharge Summary/Plan Comment DC Time >30 min.: No - General Info Functional Status: Reports: Pain Controlled, Tolerating Diet, Ambulating, Urinating - Review of Systems General: Reports: No Symptoms HEENT: Reports: No Symptoms Pulmonary: Reports: No Symptoms Cardiovascular: Reports: No Symptoms Gastrointestinal: Reports: No Symptoms Genitourinary: Reports: No Symptoms Musculoskeletal: Reports: Joint Pain, Joint Swelling Skin: Reports: No Symptoms Neurological: Reports: No Symptoms Psychiatric: Reports: No Symptoms - Patient Data Vitals - Most Recent: Last Vital Signs Temp 37.5 C 07/23/19 10:08 Pulse 73 07/23/19 10:08 Resp 16 07/23/19 10:08 BP 110/66 07/23/19 10:08 Pulse Ox 95 07/23/19 10:08 Weight - Most Recent: 93.984 kg I&O - Last 24 hours: Intake & Output 07/22/19 07/23/19 07/23/19 22:59 06:59 14:59 Intake Total 240 480 Output Total 450 300 450 Balance -210 -300 30 Med Orders - Current: Current Medications Discontinued Medications Acetaminophen (Tylenol) 650 mg PO Q4H PRN PRN Reason: Pain/Fever Hydrocodone Bitart/Acetaminophen (Gardner 325-5 Mg) 1 tab PO Q3H PRN PRN Reason: Pain (mild 1-3) Bandage/Support Products ( Nasal Human Resources Compliance Manager) 1 applic NASBOTH BID [facility] Last Admin: 07/23/19 08:15 Dose: 1 applic Bupivacaine HCl (Sensorcaine-Mpf 0.25%) Confirm Administered Dose 10 ml .ROUTE .STK-MED ONE Stop: 07/20/19 09:23 Docusate Sodium (Colace) 100 mg PO BID [facility] Last Admin: 07/23/19 08:17 Dose: 100 mg Enoxaparin Sodium (Lovenox) 30 mg SUBCUT DAILY [facility] Last Admin: 07/23/19 08:17 Dose: 30 mg Fentanyl (Sublimaze) Confirm Administered Dose 100 mcg .ROUTE .STK-MED ONE Stop: 07/20/19 08:19 Hydrochlorothiazide (Hydrochlorothiazide) 12.5 mg PO DAILY [facility] Last Admin: 07/23/19 08:17 Dose: 12.5 mg Cefazolin Sodium/Dextrose 2 gm (/ Premix) 50 mls @ 100 mls/hr IV ONETIME ONE Stop: 07/20/19 07:59 Last Admin: 07/20/19 09:25 Dose: 100 mls/hr Lactated Ringer's (Ringers, Lactated) 1,000 mls @ 75 mls/hr IV ASDIRECTED [facility] Last Admin: 07/20/19 08:06 Dose: 75 mls/hr Tranexamic Acid 960 mg/ Sodium (Chloride) 59.6 mls @ 238.4 mls/hr IV Q3H [facility] Stop: 07/20/19 09:14 Last Admin: 07/20/19 09:50 Dose: 238.4 mls/hr Tranexamic Acid 960 mg/ Sodium (Chloride) 59.6 mls @ 238.4 mls/hr IV ONETIME PRN PRN Reason: IF REORDERED BY SURGEON Stop: 07/20/19 12:01 Lactated Ringer's (Ringers, Lactated) Confirm Administered Dose 1,000 mls @ as directed .ROUTE .Hippflow-MED [facility] Stop: 07/20/19 10:26 Cefazolin Sodium/Dextrose 1 gm (/ Premix) 50 mls @ 100 mls/hr IV Q8H [facility] Stop: 07/21/19 08:29 Last Admin: 07/21/19 07:16 Dose: 100 mls/hr Sodium Chloride (Normal Saline) 1,000 mls @ 125 mls/hr IV ASDIRECTED [facility] Last Admin: 07/21/19 05:27 Dose: 125 mls/hr Magnesium Hydroxide (Milk Of Magnesia) 30 ml PO BID PRN PRN Reason: Constipation Last Admin: 07/22/19 18:36 Dose: 30 ml Midazolam HCl (Versed 1 Mg/Ml) Confirm Administered Dose 2 mg .ROUTE .STK-MED ONE Stop: 07/20/19 08:19 Morphine Sulfate (Morphine) 2 mg IVPUSH Q1H PRN PRN Reason: Breakthrough Pain Last Admin: 07/20/19 13:56 Dose: 2 mg Ondansetron HCl (Zofran) 4 mg IVPUSH Q6H PRN PRN Reason: Nausea/Vomiting Last Admin: 07/21/19 10:44 Dose: 4 mg Oxycodone/Acetaminophen (Percocet 325-5 Mg) 1 - 2 tab PO Q4H PRN PRN Reason: Pain (moderate 4-6) Last Admin: 07/23/19 13:01 Dose: 2 tab Povidone Iodine (Betadine 10% Soln) Confirm Administered Dose 1 ml .ROUTE .STK- MED ONE Stop: 07/20/19 08:54 Last Admin: 07/20/19 11:25 Dose: 1 ml Propofol (Diprivan 20 Ml) Confirm Administered Dose 200 mg .ROUTE .STK-MED ONE Stop: 07/20/19 08:19 Propofol (Diprivan 20 Ml) Confirm Administered Dose 200 mg .ROUTE .STK-MED ONE Stop: 07/20/19 10:24 Propranolol HCl (Inderal) 40 mg PO TID JAELYN Last Admin: 07/23/19 08:17 Dose: 40 mg Sumatriptan Succinate (Imitrex) 50 mg PO ASDIRECTED PRN PRN Reason: Migraine - Exam General: Reports: Alert, Oriented HEENT: Reports: Pupils Equal, Pupils Reactive, EOMI, Mucous Membr. Moist/[place] Neck: Reports: Supple Lungs: Reports: Clear to Auscultation, Normal Respiratory Effort Cardiovascular: Reports: Regular Rate, Regular Rhythm GI/Abdominal Exam: Normal Bowel Sounds, Soft, Non-Tender, No Distention (Female) Exam: Deferred Rectal (Female) Exam: Deferred Back Exam: Reports: Normal Inspection Extremities: Joint Swelling, Limited Range of Motion Skin: Reports: Warm, Dry Wound/Incisions: Reports: Healing Well, No Drainage Neurological: Reports: No New Focal Deficit Psy/Mental Status: Reports: Alert, Normal Affect, Normal Mood
== END 2019-07-23 13:55 | DRG 470 ==
LOC: JP.SDS 06:34 → JP.MS 06:34 → EDSTATUS 08:30 → JP.2SS 11:48
PROVIDERS: ADMIT Specialist; ATTEND Specialist
PROC: 0SRD0J9 Replacement of Left Knee Joint with Synthetic Substitute, Cemented, Open Approach (ICD-10-PCS; principal; 2019-07-20)
DX: M17.12 Unilateral primary osteoarthritis, left knee (principal); Z68.41 Body mass index [BMI] 40.0-44.9, adult; I10 Essential (primary) hypertension; E66.01 Morbid (severe) obesity due to excess calories
CPT/HCPCS: 36415; 73560-LT; 80048; 85027; 97110-GP; 97116-GP; 97162-GP; 97530-GP; A9270-GY; C1713; C1776; J0690; J1650; J2250; J2270; J2405; J2704; J3010; J3490; J7030; J7050; J7120